=== PATIENT | female | born 1965 | race Caucasian/White ===

== ENCOUNTER 2017-03-06 10:12 | Observation (INO) ==
[2017-03-06] MEDS ORDERED: ASPIRIN PO STA (10:33)
[2017-03-06] MEDS ORDERED: NS 1,000 ML IV ONE ×2 (10:37→12:24)
[2017-03-06 10:49] LABS: MANUAL DIFF NEEDED? NO
[2017-03-06 10:56] LABS: BASO% 0.1 % (0.0-0.8); EOS# 0.01 X1000 (0.0-0.7); EOS% 0.1 % (0.0-10.0); HEMATOCRIT 36.9 % (37.0-47.0); HEMOGLOBIN 12.1 g/dL (12.0-16.0); LYMPH% 9.4 % (20.5-51.1); MCH 26.9 PG (27-31); MCHC 32.8 g/dL (33-37); MONO# 0.88 X1000 (0.11-0.59); MONO% 11.9 % (1.7-9.3); MPV 9.9 FL (7.4-10.4); NEUT% 78.5 % (42.2-75.2); PLT 181 X1000 (130-400)
[2017-03-06 11:04] LABS: INR 1.01; PROTIME 10.6 Seconds (9.2-11.7); PTT 21.5 Seconds (22.0-36.0)
[2017-03-06 11:14] LABS: AGAP 13; ALBUMIN 3.6 g/dL (3.5-5.0); ALKALINE PHOSPHATASE 102 U/L (32-104); BUN 15 mg/dL (8-22); CALCIUM 9.2 mg/dL (8.8-10.2); CHLORIDE 100 mmol/L (98-107); CK PROFILE 46 U/L (24-173); COSMO 279; GOT 23 U/L (10-30); GPT 23 U/L (10-36); MAGNESIUM 1.5 mg/dL (1.5-2.7); POTASSIUM 3.1 mmol/L (3.5-5.1); SODIUM 138 mmol/L (136-145); TCO2 25 mmol/L (25-35); TOTAL BILIRUBIN 0.51 mg/dL (0.20-1.00); TOTAL PROTEIN 6.8 g/dL (6.3-8.3)
--- NOTE | 2017-03-06 11:27 | Diag Imaging Result Doc PS360 ---
HEAD/C-SPINE W/O CONTRAST - 03/06/2017 INDICATION: fall, syncope head and neck injury TECHNIQUE: A CT dose reduction protocol was used. COMPARISON: None FINDINGS: Head CT: The ventricles and sulci are normal in size and contour. No intracranial mass or hemorrhage. The skull is intact. The sinuses, mastoids, and middle ears are clear. Cervical spine: There is nonfusion of the posterior arch of C1, a normal variant. Alignment is anatomic. No fracture or subluxation. There is some mild facet degeneration. No central canal or neural foraminal stenosis. IMPRESSION: Negative exam. Electronically signed by James Amador 03/06/2017 11:25 AM
--- NOTE | 2017-03-06 11:33 | Diag Imaging Result Doc PS360 ---
CHEST-2 VIEWS - 03/06/2017 INDICATION: CP TECHNIQUE: COMPARISON: None FINDINGS: There is extensive alveolar infiltrate in the lateral left midlung and base. No pneumothorax or pleural effusion. Heart size and pulmonary vascularity is normal. IMPRESSION: Extensive infiltrate/pneumonia in the left lung. Electronically signed by James Amador 03/06/2017 11:31 AM
[2017-03-06] MEDS ORDERED: KLOR-CON PO ONE (11:53)
[2017-03-06] MEDS ORDERED: ZOSYN 3.375 GM/NS 3.375 GM/50 ML IVPB IV ONE (12:06)
[2017-03-06] MEDS ORDERED: ZOFRAN PO PRN (12:24)
[2017-03-06] MEDS ORDERED: VANCOMYCIN IV PER PHARMACY MISC SCH (14:30)
[2017-03-06] MEDS: ZOSYN 3.375 GM/NS 3.375 GM/50 ML IVPB IV SCH ×2 (14:33→23:45)
--- NOTE | 2017-03-06 14:50 | HISTORY AND PHYSICAL ---
CHIEF COMPLAINT: Syncope and fever. PRESENT ILLNESS: This is the first [facility] admission for this 51-year-old white female, a patient of Dr. Joseph, who felt weak last evening and had moderate cough. Early a.m. her temperature was 100.7 degrees. She got up to go to the bathroom and had some stumbling, hitting herself on furniture, then passing out for a few seconds. She hit her head. She complained with mild back pain following the fall. She presented to the emergency room for evaluation. She was seen by Dr. Machado. White blood count was normal at 7400, but chest x-ray revealed moderate left lower lobe infiltrate. CT of her head and neck revealed no significant abnormality. There was mild facet degeneration, but no neuroforaminal stenosis. Sinuses, mastoids and middle ears were normal. She was given Zosyn and admitted for further evaluation and treatment of pneumonia. PAST MEDICAL/SURGICAL HISTORY: Surgeries include hysterectomy, left oophorectomy, appendectomy, bilateral carpal tunnel surgery, and gastric bypass surgery. PRESENT MEDICATIONS: Only vitamins. ALLERGIES: None known, but she cannot tolerate NSAIDs post gastric bypass. REVIEW OF SYSTEMS: She complains with left ear pain and back pain. She has had no nausea and vomiting. She had no fever until early this morning. She has undergone moderate stress with a sister in the hospital and rehab facilities for 4 months. She is presently in [facility] and has bone cancer and large decubitus. She has another sister with bronchitis. There has been a lot of traveling recently to [place], [place], and [place] related to her sister's hospital and rehab stays. Her sleep has been impaired over the past few months. She has been weaker, but there has been no weight loss. In fact, she has gained 10 pounds of weight since her loss after bypass. She lost about 115 pounds after bypass. Prior to her bypass she had diabetes and was on 2 medications orally. Sugars have been low at times over the past several weeks. She has had no other syncopal episodes except the one this morning. There is no known history of heart disease. SOCIAL HISTORY: Single and lives with her parents. She worked for [employer]. She denies smoking and alcohol usage. LABORATORY: White blood count 7400. Hemoglobin 12.1, hematocrit 36.9. Sodium 138, potassium 3.1, BUN 15, creatinine 0.8, blood sugar 141, liver functions normal. CPK 46, troponin T less than 0.01. Vitamin B12 greater than 2000. Folic acid 19.7. TSH 1.2. PHYSICAL EXAMINATION: VITAL SIGNS: Temperature 97.8 degrees, heart rate 107, respiration 14, blood pressure 127/78, O2 saturation on room air 98%. HEENT/NECK: Tympanic membranes without inflammation. Pupils equal, round, and reactive to light. Pharynx benign with no erythema or exudate. Neck supple with no mass or lymphadenopathy. There is no temporomandibular discomfort or neck pain to palpation. There is no lymphadenopathy. HEART: Regular in rate and rhythm with no murmur, rub or gallop. LUNGS: Decreased breath sounds at the left base, but no rales. ABDOMEN: Soft with no mass, tenderness, or organomegaly. EXTREMITIES: No cyanosis, clubbing, or edema. PELVIC AND RECTAL: Deferred. NEUROLOGICAL: Grossly intact with no focal weakness. IMPRESSIONS: Left lower lobe pneumonia, status post gastric bypass. PLAN: Intravenous antibiotics with Zosyn and vancomycin. Blood cultures were done. She is not having sputum production. cc: MD Franc Del Rio MD
[2017-03-06 15:59] LABS: URINE MICRO REVIEW NEEDED? NO; URINE SOURCE CLEAN CATCH
[2017-03-06 16:05] LABS: BILIRUBIN URINE NEGATIVE (NEGATIVE); BLOOD URINE NEGATIVE (NEGATIVE); COLOR YELLOW; GLUCOSE URINE NEGATIVE (NEGATIVE); LEUKOCYTES URINE TRACE (NEGATIVE); NITRITE URINE NEGATIVE (NEGATIVE); PH URINE 7.5; PROTEIN URINE NEGATIVE (NEGATIVE); SP GRAVITY URINE 1.015; TURBIDITY URINE CLEAR (CLEAR); UR EPITHELIAL CELLS <10 /HPF (<10); URINE BACTERIA NEGATIVE /HPF; URINE CULTURE NEEDED? YES; URINE RBC <10 /HPF (<10); URINE WBC <10 /HPF (<10); UROBILINOGEN URINE NORMAL (NORMAL)
[2017-03-06] MEDS: TYLENOL PO PRN ×2 (16:05→19:51)
[2017-03-06] MEDS: ULTRAM PO PRN ×2 (16:05→22:04)
[2017-03-06] MEDS: VANCOMYCIN 2 GM in NS 500 ML IV SCH (17:52)
[2017-03-06] MEDS: DUONEB (A & A) INH PRN (19:10)
[2017-03-07] MEDS: ZOSYN 3.375 GM/NS 3.375 GM/50 ML IVPB IV SCH ×3 (05:30→16:59)
[2017-03-07] MEDS: TYLENOL PO PRN (07:01)
--- NOTE | 2017-03-07 09:16 | PROGRESS NOTE ---
DATE: 03/07/2017 VITAL SIGNS: Temperature 99.3 degrees, heart rate 94, respirations 20, blood pressure 127/52, O2 saturation 94% on room air. SUBJECTIVE: Patient complains with mild headache this morning. She was given some Tylenol a short time ago. She rested some last night. Breathing seems okay. OBJECTIVE: Lungs: Reveal mild decrease in breath sounds at the left base otherwise clear. Abdomen: Soft. PLAN: Repeat chest x-ray and lab tomorrow morning. Continue IV antibiotics with Zosyn and vancomycin. Cultures are pending. cc: MD Franc Del Rio MD
[2017-03-07] MEDS: KLOR-CON PO SCH ×3 (09:57→16:58)
[2017-03-07] MEDS: VANCOMYCIN 2 GM in NS 500 ML IV SCH (16:58)
[2017-03-07] MEDS: ULTRAM PO PRN (21:00)
[2017-03-08] MEDS: ZOSYN 3.375 GM/NS 3.375 GM/50 ML IVPB IV SCH ×2 (01:30→09:31)
[2017-03-08 06:38] LABS: MANUAL DIFF NEEDED? NO
[2017-03-08 06:44] LABS: BASO% 0.1 % (0.0-0.8); EOS# 0.16 X1000 (0.0-0.7); EOS% 1.9 % (0.0-10.0); HEMATOCRIT 36.4 % (37.0-47.0); HEMOGLOBIN 11.8 g/dL (12.0-16.0); LYMPH# 2.64 X1000 (1.2-3.4); LYMPH% 31.2 % (20.5-51.1); MCH 26.8 PG (27-31); MCHC 32.4 g/dL (33-37); MCV 82.5 FL (81-99); MONO# 0.66 X1000 (0.11-0.59); MONO% 7.8 % (1.7-9.3); MPV 9.9 FL (7.4-10.4); PLT 200 X1000 (130-400); RBC 4.41 XMIL (4.2-5.4)
[2017-03-08 07:04] LABS: AGAP 14; BUN 11 mg/dL (8-22); CALCIUM 9.1 mg/dL (8.8-10.2); CHLORIDE 102 mmol/L (98-107); COSMO 280; POTASSIUM 3.8 mmol/L (3.5-5.1); SODIUM 141 mmol/L (136-145); TCO2 25 mmol/L (25-35)
--- NOTE | 2017-03-08 07:45 | EKG Report ---
Test Performed on : 03/06/2017 10:22:59 AM Test Reason : weakness Blood Pressure : / mmHG Vent. Rate : 102 BPM Atrial Rate : 102 BPM P-R Int : 176 ms QRS Dur : 088 ms QT Int : 340 ms P-R-T Axes : 063 070 034 degrees QTc Int : 443 ms Sinus tachycardia. Otherwise normal ECG When compared with ECG of 16-JAN-2008 09:20, No significant change was found Unconfirmed Result
[2017-03-08 07:56] VITALS: BP 121/68
--- NOTE | 2017-03-08 08:01 | Diag Imaging Result Doc PS360 ---
EXAM: CHEST-2 VIEWS HISTORY: pneumonia TECHNIQUE: COMPARISON: 03/06/2017 FINDINGS: There are infiltrates in the mid and lower left lung. These are less dense than on the prior study. Right lung remains clear. No cardiomegaly. The vessels are not distended. No pleural effusions. IMPRESSION: Interval improvement in the left-sided pneumonia Electronically signed by Negro Diallo 03/08/2017 7:59 AM
[2017-03-08] MEDS: DUONEB (A & A) INH PRN (08:30)
[2017-03-08] MEDS: KLOR-CON PO SCH (09:31)
--- NOTE | 2017-03-08 11:18 | DISCHARGE SUMMARY ---
ADMISSION DATE: 03/06/2017 DISCHARGE DATE: 03/08/2017 FINAL DIAGNOSES: 1. Left lower lobe pneumonia. 2. Volume depletion. 3. Hypokalemia. 4. Contusion of her left forehead and left wrist. 5. Syncope of undetermined etiology. 6. Post gastric bypass. DISCHARGE MEDICATIONS: Usual medication at home plus Keflex 500 mg (30) one 4 times daily for infection. HISTORY OF PRESENT ILLNESS: This is the first recent [facility] admission for this 51-year- old white female, a patient of Dr. Joseph, who had a syncopal episode at home and presented to the emergency room. She had moderate cough the evening prior to admission. She also had temperature elevation with reading 101.7 the finish photographer before admission. She was afebrile on presentation to the emergency room. She had taken some Tylenol. Chest x-ray revealed moderate left lower lobe pneumonia. She was admitted for further evaluation and treatment. There was a history of increased stress, decreased rest, and exposure to possible other pathogens with her sister being in hospitals and rehab for the last 4 months. INITIAL LABORATORY DATA: Hemoglobin 12.1, hematocrit 36.9, white blood count 7400 with 79% neutrophils. Chemistries were normal except for potassium 3.1 and glucose 141. TSH was normal at 1.2. BNP was 57 and troponin T less than 0.01. HOSPITAL COURSE: She was placed on telemetry. There were no arrhythmias. She was given a diet with divided smaller meals 6 times daily. Chest x-ray was repeated this morning. There was improvement in the left lower lobe infiltrate. She had been on Zosyn and vancomycin IV. Her O2 saturation on room air this morning is 95%. She is feeling better. She had a low-grade fever initially, but is afebrile today. DISPOSITION: She is discharged home on the above medications and to see Dr. Joseph in about 1 week for a followup. cc: MD Franc Del Rio MD
--- NOTE | 2017-03-10 16:34 | PROVIDER DOCUMENTATION ---
This chart was entered by Candi Gill Scribe, acting as scribe for Nabor Machado MD. HPI-Syncope/Dizziness - General Chief Complaint: Weakness Stated Complaint: syncopal episode Time Seen by Provider: 03/06/17 10:37 Source: patient Allergies/Adverse Reactions: Patient Allergies Allergy/AdvReac Type Severity Reaction Status Date / Time No Known Allergies Allergy Verified 03/06/17 10:43 Home Medications: Home Medication List Medication Instructions Recorded Confirmed Last Taken Type Biotin 0 mg PO DAILY 03/06/17 03/06/17 03/06/17 History Calcium Carbonate [Calcium] 600 mg PO DAILY 03/06/17 03/06/17 03/06/17 History Cholecalciferol (Vit D3) [Vitamin 1,000 unit PO DAILY 03/06/17 03/06/17 History D3] Cyanocobalamin (Vitamin B-12) 0 mcg PO DAILY 03/06/17 03/06/17 03/06/17 History [Vitamin B12] Multivitamin [Multivitamins] 1 each PO DAILY 03/06/17 03/06/17 03/06/17 History Acetaminophen [Tylenol] 650 mg PO Q6H PRN PRN #0 tablet 03/08/17 Unknown Rx Cephalexin [Keflex] 500 mg PO DAILY #30 capsule 03/08/17 Unknown Rx - History of Present Illness-Syncope/Dizzy Nature of Presenting Problem: Pt is a 51 yof who came to the ED via EMS with a cc of syncope episode that occurred this morning. Pt reports last night she went to bed and she felt fine, but this morning she went to the bathroom and started to feel weird. Pt reports the second time she went to the bathroom she became dizzy and tried to catch herself but ended up passing out in the [place]. Pt mother heard the pt yell for her and found the pt on the floor. The pt was diaphoretic and confused. Pt has a hx of diabetes but was resolved after gastric bypass surgery, so pt hasn't taken diabetes medicine in years. The pt mother checked her blood sugar before calling EMS and it was 124. Pt is complaining about neck pain and forehead pain. Prior Episodes: reports: no prior history Onset/Duration: reports: just prior to arrival Timing: reports: still present Symptoms prior to episode: reports: lightheaded Context: reports: lost consciousness, collapsed, confused after event Loss of Consciousness: dazed Location of injury. (If syncope resulted in an injury.): reports: head (left forehead), neck Current Symptoms: reports: sweaty, headache Recently Seen Here or By Another Healthcare Provider: No - Dizziness Severity in ED: reports: mild Dizziness Related Current/Associated Symptoms: reports: lightheaded, dizzy, headache Any recent trauma/injury?: reports: to head Patient usually:: reports: walks without assistance Review of Systems - Adult - REVIEW OF SYSTEMS - ADULT Constitutional: reports: chills. denies: fever, fatique Eyes: reports: no symptoms reported Ears, Nose, Mouth & Throat: reports: no symptoms reported Cardiovascular: reports: no symptoms reported Respiratory: reports: no symptoms reported Gastrointestinal: reports: no symptoms reported. denies: diarrhea, nausea, vomiting Genitourinary: reports: no symptoms reported Musculoskeletal: reports: neck pain, other (left forehead contusion). denies: joint pain, joint swelling Neurological: reports: dizziness/vertigo, syncope. denies: numbness, seizure Psychiatric: reports: no symptoms reported Endocrine: reports: other (recent hypoglycemia episode, today BS was 124 after passing out) Past History - Adult - PAST MEDICAL HISTORY-ADULT Review of Records: reports: Nursing Assessment Review Major Childhood Illnesses: reports: denies history Cardiovascular: reports: HTN, hyperlipidemia Respiratory: reports: sleep apnea Gastrointestinal: reports: denies history Obstetrical/Gynecological: reports: denies history Genitourinary: reports: denies history Musculoskeletal: reports: denies history Neurological: reports: denies history Endocrine/Immune: reports: Diabetes (history of DM prior to gastric bypass) Other Conditions: reports: denies history - PRIOR SURGERIES/PROCEDURES Surgical/Procedure History: reports: appendectomy, gastric bypass - IMMUNIZATION STATUS Childhood Immunizations: See Nurse Assessment Flu Vaccine: See Nurse Assessment - FAMILY HISTORY Family History: CAD under 55yo, other (sudden cardiac ) - SOCIAL HISTORY Smoking: denies Living Situation: family Physical Exam-General - PHYSICAL EXAM-ADULT Initial Vital Signs Reviewed: Yes - CONSTITUTIONAL General Appearance: alert, no apparent distress, obese, other (markedly diaphoretic) - EYES Eyes: PERRL/EOMI, pink conjunctivae - HEAD, EARS, NOSE, MOUTH & THROAT HENMT: normocephalic/atraumatic, moist mucous membranes, other (contusion with mild swelling on left upper forehead) - NECK Neck: C-spine tenderness - RESPIRATORY Respiratory: chest non-tender, lungs clear, normal breath sounds - CARDIOVASCULAR Cardiovascular: normal peripheral pulses, tachycardia, systolic murmur (2/6) - GASTROINTESTINAL (ABDOMEN) Abdominal Exam: normal bowel sounds, non tender, soft - MUSCULOSKELETAL Back Exam: normal inspection, no CVA tenderness Extremity: no pedal edema, no calf tenderness, normal capillary refill. negative: normal gait, calf tenderness, pulse deficit Peripheral Pulses: dorsalis-pedis (R): 2+, dorsalis-pedis (L): 2+ - SKIN Integumentary: normal color, diaphoresis, other (contusion on the left side of the forehead) - NEUROLOGIC Neurologic: grossly normal - PSYCHIATRIC Psych/Mental Status: normal mood/affect, normal thought content, normal thought process, oriented x 3 Progress - PLAN OF CARE/RESULTS Result Diagrams: 03/08/17 06:23 03/08/17 06:23 - EKG 1 Time of EKG reading by physician:: 10:22 EKG Read and Signed by:: Nabor Machado EKG Interpretation (*Must complete 3 of following elements*): Normal Rate: 102 Rhythm: sinus tachycardia Departure - Departure Date of Disposition Decision: 03/06/17 Time of Disposition Decision: 12:24 DIAGNOSIS: Pneumonia Qualifiers: Pneumonia type: due to unspecified organism Laterality: left Lung location: unspecified part of lung Qualified Code(s): J18.9 - Pneumonia, unspecified organism Disposition: HOME 01 Certified Medical Emergency: Emergent Condition: Stable - Critical Care Note This patient required my direct & personal management of CC.: No This chart was documented by the indicated scribe, (Candi Gill Scribe) and accurately reflects the services I performed and decisions made by me, Nabor Machado MD, as attested by the provider's signature.
== END 2017-03-08 11:46 | disposition home or self-care (01) ==
LOC: ED 10:12 → INTOOBSV 10:13 → 3N 12:59
PROVIDERS: ADMIT Family Medicine; ATTEND Family Medicine